=== PATIENT | female | born 1950 | race Caucasian/White ===

== ENCOUNTER 2020-06-14 04:21 | Outpatient (RCR) | payer OTHER, SELFPAY ==
[2020-06-14] MEDS: Normal Saline Flush 10 ML SYR IVP (10:35)
== END 2020-06-24 23:59 | disposition home or self-care (01) ==
LOC: INF 04:21
PROVIDERS: Visit Provider Family Medicine
DX: M81.0 Age-related osteoporosis without current pathological fracture (principal)
CPT/HCPCS: 96365; J3489

== ENCOUNTER 2020-07-16 01:47 | Outpatient (CLI) | payer OTHER, SELFPAY ==
--- NOTE | 2020-07-16 07:30 | DI.MAMMO_ITS ---
EXAM: MG MAMMO SCREENING 60 MIN DUR CLINICAL HISTORY: breast cancer screening,z12.39. TECHNIQUE: Bilateral full field digital CC and MLO mammographic images were obtained with 3D tomosyn thesis and utilizing computer aided detection (CAD). COMPARISON: Prior outside mammograms dating back to 2018. Most recent mammogram in PACS is 2019. T his patient underwent right breast lumpectomy for malignancy in 2016. She has no present breast comp laints FINDINGS: The fibroglandular tissue is quite dense, this decreasing the sensitivity of the mammogram for findin g hidden underlying lesions. There are no obvious spiculated masses nor malignant appearing microcalcification groups. There is n o new significant architectural distortion nor skin thickening-retraction. IMPRESSION: Dense bilateral fibroglandular tissue. No obvious radiographic evidence of malignancy. Given the density of this patient's fibroglandular tissue and previous breast cancer history, I recom mend bilateral screening breast ultrasound. BI-RADS Category 0 - Assessment Incomplete: Need additional imaging evaluation Breast Density - Category D - Extremely dense Breast density Category C or D implies that the patient has dense breast tissue. Dense breast tissue can make it harder to find cancer on a mammogram. Dense breast tissue is also associated with an incr eased risk of breast cancer. This information about the result of the mammogram report was provided to the patient to raise their awareness. Use this report when you speak with the patient about their risks for breast cancer, which includes their family history. At that time, you may recommend additional screening tests (Ultrasoun d or MRI) as these tests may add significant information. A negative radiographic report should not delay biopsy if a dominant or clinically suspicious mass is present. Up to ten percent of cancers are not identified on mammography. A negative report may reinforce clinical impression. Adenosis and dense breasts may obscure an underlying neoplasm. False positive reports average 6 to 10%. Patient will receive a letter notifying them of these results.
== END 2020-07-16 01:48 ==
LOC: DI 01:47
DX: Z12.31 Encounter for screening mammogram for malignant neoplasm of breast (principal); R92.8 Other abnormal and inconclusive findings on diagnostic imaging of breast
CPT/HCPCS: 77063; 77067

== ENCOUNTER 2020-07-19 02:59 | Outpatient (CLI) | payer OTHER, SELFPAY ==
[2020-07-19 12:45] LABS: ALT 27 U/L (14-59); AST 19 U/L (15-37); Albumin 4.1 g/dL (3.4-5.0); Alkaline Phosphatase 88 U/L (46-116); Anion Gap 11.5 mmol/L (3-11); BUN 20 mg/dL (7-18); Bilirubin, Total 0.5 mg/dL (0.2-1.0); CO2 27.5 mmol/L (21.0-32.0); CREATININE 0.7 mg/dL (0.55-1.02); Calcium 9.6 mg/dL (8.5-10.1); Calculated LDL 130 mg/dL (<100); Chloride 102 mmol/L (98-107); Cholesterol 237 mg/dL (<200); Glucose 86 mg/dL (74-106); HDL Cholesterol 93 mg/dL (40-60); Potassium 4.3 mmol/L (3.5-5.1); Sodium 141 mmol/L (136-145); Total Protein 7.4 g/dL (6.4-8.2); Triglyceride 70 mg/dL (<150)
== END 2020-07-19 03:00 | disposition home or self-care (01) ==
LOC: LOS 02:59
DX: K21.9 Gastro-esophageal reflux disease without esophagitis (principal); M81.0 Age-related osteoporosis without current pathological fracture; Z85.3 Personal history of malignant neoplasm of breast; Z79.899 Other long term (current) drug therapy
CPT/HCPCS: 36415; 80053; 80061

== ENCOUNTER 2020-07-23 01:56 | Outpatient (CLI) | payer OTHER, SELFPAY ==
--- NOTE | 2020-07-23 | DI.US_ITS ---
EXAM: US BREAST LT COMPLETE CLINICAL HISTORY: F/U MAMMO, INCONCLUSIVE,DENSE FIBROGLANDULAR TISSUE, H/O BREAST CA TECHNIQUE: Ultrasound right breast performed using standard protocol. COMPARISON: MG MG MAMMO SCREENING 60 MIN DUR from 07/16/2020 FINDINGS: All 4 quadrants of the left breast were evaluated sonographically in the anti radial radial orientati on. No cystic or solid masses are seen sonographically. The axilla was evaluated and is unremarkabl e. IMPRESSION: 1. Unremarkable left breast ultrasound. 2. No evidence for malignancy at this time. Yearly mammography is recommended. BI-RADS Category 1 - Negative DATA REPOSITORY:
--- NOTE | 2020-07-23 | DI.US_ITS ---
EXAM: US BREAST RT COMPLETE CLINICAL HISTORY: F/U INCONCLUSIVE MAMMO,DENSE FIBROGLANDULAR TISSUE,PREVIOUS H/O CA TECHNIQUE: Ultrasound right breast performed using standard protocol. COMPARISON: MG MG MAMMO SCREENING 60 MIN DUR from 07/16/2020 FINDINGS: All 4 quadrants of the right breast were evaluated sonographically in the anti radial and radial orie ntation. No cystic or solid masses are seen sonographically. The axilla was evaluated a is unremark able. IMPRESSION: 1. Unremarkable right breast ultrasound. 2. No evidence for malignancy at this time. Yearly mammography is recommended. BI-RADS Category 1 - Negative DATA REPOSITORY:
== END 2020-07-23 02:16 ==
DX: R92.8 Other abnormal and inconclusive findings on diagnostic imaging of breast (principal); R92.2 Inconclusive mammogram; Z85.3 Personal history of malignant neoplasm of breast
CPT/HCPCS: 76642

== ENCOUNTER 2021-06-20 03:16 | Outpatient (RCR) | payer MEDICARE, SELFPAY ==
[2021-06-20] MEDS: Normal Saline Flush 10 ML SYR IVP (10:21)
== END 2021-06-24 23:59 | disposition home or self-care (01) ==
LOC: INF 03:16
PROVIDERS: Visit Provider Family Medicine
DX: M81.0 Age-related osteoporosis without current pathological fracture (principal)
CPT/HCPCS: 96365; J3489

== ENCOUNTER 2021-07-18 00:52 | Outpatient (CLI) | payer MEDICARE, SELFPAY ==
--- NOTE | 2021-07-18 07:30 | DI.MAMMO_ITS ---
Exam(s) MG MAMMO SCREENING 60 MIN DUR EXAM: MG MAMMO SCREENING 60 MIN DUR CLINICAL HISTORY: breast cancer screening,personal h/o breast ca,z85.3. TECHNIQUE: Bilateral full field digital CC and MLO mammographic images were obtained with 3D tomosyn thesis and utilizing computer aided detection (CAD). COMPARISON: Prior mammograms were reviewed, the most recent being June 2020. Patient right [address] lumpectomy for malignancy in 2016.. Breast ultrasound examination July 2020 was reviewed FINDINGS: The fibroglandular tissue pattern is again noted be quite dense, this decreasing sensitivity of the m ammogram for finding hidden underlying lesions There are no CAD designations There are no new obvious spiculated masses nor malignant appearing microcalcification groups. There is no significant architectural distortion nor skin thickening-retraction. IMPRESSION: Dense bilateral fibroglandular tissue. No obvious radiographic evidence of malignancy nor significan t change compared to prior studies listed above. BI-RADS Category 1 - Negative Breast Density - Category C - Heterogeneously dense Breast density Category C or D implies that the patient has dense breast tissue. Dense breast tissue can make it harder to find cancer on a mammogram. Dense breast tissue is also associated with an incr eased risk of breast cancer. This information about the result of the mammogram report was provided to the patient to raise their awareness. Use this report when you speak with the patient about their risks for breast cancer, which includes their family history. At that time, you may recommend additional screening tests (Ultrasoun d or MRI) as these tests may add significant information. A negative radiographic report should not delay biopsy if a dominant or clinically suspicious mass is present. Up to ten percent of cancers are not identified on mammography. A negative report may reinforce clinical impression. Adenosis and dense breasts may obscure an underlying neoplasm. False positive reports average 6 to 10%. Patient will receive a letter notifying them of these results.
== END 2021-07-18 01:12 ==
DX: Z85.3 Personal history of malignant neoplasm of breast (principal); Z12.31 Encounter for screening mammogram for malignant neoplasm of breast; R92.8 Other abnormal and inconclusive findings on diagnostic imaging of breast
CPT/HCPCS: 77063; 77067

== ENCOUNTER 2021-10-18 01:34 | Outpatient (CLI) | payer MEDICARE, SELFPAY ==
[2021-10-18 12:41] LABS: ALT 26 U/L (14-59); AST 20 U/L (15-37); Alkaline Phosphatase 101 U/L (46-116); Anion Gap 7.7 mmol/L (3-11); BUN 16 mg/dL (7-18); Bilirubin, Total 0.4 mg/dL (0.2-1.0); CO2 27.3 mmol/L (21.0-32.0); CREATININE 0.8 mg/dL (0.55-1.02); Calculated LDL 128 mg/dL (<100); Chloride 108 mmol/L (98-107); Cholesterol 232 mg/dL (<200); Glucose 91 mg/dL (74-106); HDL Cholesterol 94 mg/dL (40-60); Potassium 4.4 mmol/L (3.5-5.1); Sodium 143 mmol/L (136-145); Total Protein 6.9 g/dL (6.4-8.2); Triglyceride 54 mg/dL (<150)
== END 2021-10-18 01:35 | disposition home or self-care (01) ==
LOC: LOS 01:34
DX: E78.5 Hyperlipidemia, unspecified (principal)
CPT/HCPCS: 36415; 80053; 80061

== ENCOUNTER → 2021-12-13 00:43 | Outpatient (CLI) | payer MEDICARE, SELFPAY ==
--- NOTE | 2021-12-13 07:45 | DI.DEXA_ITS ---
Exam(s) XR DEXA BONE DENSITY W/WO SHERRY EXAM: XR DEXA BONE DENSITY W/WO SHERRY CLINICAL HISTORY: osteoporosis,m81.0 TECHNIQUE: [employer] C densitometer analysis of left hip, lumbar spine and right forearm. COMPARISON: No exams were available for comparison FINDINGS: Lateral view of the thoracic and lumbar spine shows no evidence of compression fractures. Bone mineral density measurements of the lumbar spine correspond to a total T-score of -1.4, in the o steopenic range. Bone mineral density measurements of the left hip correspond to a total T-score of -3.1. The femora l neck T-score is -3.0, in the osteoporotic range. . The right forearm bone mineral density measurements correspond to a T-score of the distal 3rd of -2.2 , in the osteopenic range. Total T-score is -3.0, in the osteoporotic range. . IMPRESSION: Osteopenia of the lumbar spine and right forearm. Osteoporosis of the left hip
== END ==
DX: M81.0 Age-related osteoporosis without current pathological fracture (principal); Z13.820 Encounter for screening for osteoporosis; M85.89 Other specified disorders of bone density and structure, multiple sites
CPT/HCPCS: 77080

== ENCOUNTER 2022-08-11 02:01 | Outpatient (CLI) | payer MEDICARE, BC, SELFPAY ==
--- NOTE | 2022-08-11 | DI.US_ITS ---
Exam(s) US BREAST LT COMPLETE MG MAMMO SCREENING 60 MIN DUR EXAM: MG MAMMO SCREENING 60 MIN DUR CLINICAL HISTORY: breast cancer screening,personal h/o breast ca,z85.3,z12.39. TECHNIQUE: Bilateral full field digital CC and MLO mammographic images were obtained with 3D tomosyn thesis and utilizing computer aided detection (CAD). Also performed additional spot compression views of left breast because a finding possible nodular de nsity in left breast on today's screening mammogram. Also performed complete left breast ultrasound including all 4 quadrants, the retroareolar region and the left axilla. COMPARISON: Prior mammograms were reviewed. This patient had prior right breast lumpectomy. FINDINGS: Fibroglandular tissue of the breast is again noted be dense, this somewhat decreasing the sensitivity of the mammogram for finding hidden underlying lesions. No new significant radiograph findings in the right breast. In the left breast on the 3D MLO images there is a suggestion of a nodule measuring approximately 9 x 8 millimeters, located approximately 3 cm in from the nipple on the MLO view. Additional spot compression view of this area was equivocal for the presence of a nodule. We proceed ed with ultrasound. (See below). In the opposite-right breast there is no significant change. Some architectural distortion from prio r lumpectomy again noted. No new nodules evident in the right breast. Benign appearing microcalcifications are noted but no new malignant-appearing microcalcification grou ps. COMPLETE LEFT BREAST ULTRASOUND: No evidence of solid or significant cystic lesions in all 4 quadrants. No ultrasound findings to cor respond to the finding in the left breast on today's mammogram. This implies that the mammogram find ing may just be related to overlapping tissues in this patient with dense breast tissue. Scanning of the left axilla is negative for adenopathy. IMPRESSION: 1. No radiographic evidence of malignancy. 2. Negative complete left breast ultrasound. Appropriate follow-up is keep this patient yearly mammogram schedule, with earlier imaging if a self detected breast change is noted. Findings and recommendations were discussed by myself with the patient today. BI-RADS Category 2 - Benign Findings Breast Density - Category D - Extremely dense Breast density Category C or D implies that the patient has dense breast tissue. Dense breast tissue can make it harder to find cancer on a mammogram. Dense breast tissue is also associated with an incr eased risk of breast cancer. This information about the result of the mammogram report was provided to the patient to raise their awareness. Use this report when you speak with the patient about their risks for breast cancer, which includes their family history. At that time, you may recommend additional screening tests (Ultrasoun d or MRI) as these tests may add significant information. A negative radiographic report should not delay biopsy if a dominant or clinically suspicious mass is present. Up to ten percent of cancers are not identified on mammography. A negative report may reinforce clinical impression. Adenosis and dense breasts may obscure an underlying neoplasm. False positive reports average 6 to 10%. Patient will receive a letter notifying them of these results.
== END 2022-08-11 02:21 ==
PROVIDERS: PCP Nurse Practitioner Family
DX: Z12.31 Encounter for screening mammogram for malignant neoplasm of breast (principal); Z85.3 Personal history of malignant neoplasm of breast; R92.8 Other abnormal and inconclusive findings on diagnostic imaging of breast; N64.59 Other signs and symptoms in breast
CPT/HCPCS: 76642; 77063; 77067

== ENCOUNTER 2023-02-24 01:11 | Outpatient (RCR) | payer MEDICARE, BC, SELFPAY ==
[2023-02-24] MEDS: Normal Saline Flush 10 ML SYR IVP (11:14)
[2023-02-24] MEDS: ZOLEDRONIC ACID/MANNITOL/WATER 5 MG/100 ML BTL 300 MG IVPB (11:14)
== END 2023-03-24 23:59 | disposition home or self-care (01) ==
LOC: INF 01:11
PROVIDERS: PCP Nurse Practitioner Family; Visit Provider Nurse Practitioner Family
DX: M81.0 Age-related osteoporosis without current pathological fracture (principal)
CPT/HCPCS: 96365; J3489

== ENCOUNTER → 2023-08-21 00:54 | Outpatient (CLI) | payer MEDICARE, BC, SELFPAY ==
--- NOTE | 2023-08-21 11:32 | DI.MAMMO_ITS ---
Exam(s) MG MAMMO SCREENING 60 MIN DUR EXAM: MG MAMMO SCREENING 60 MIN DUR CLINICAL HISTORY: breast cancer screening,personal h/o breast ca,z85.3,z12.39. TECHNIQUE: Bilateral full field digital CC and MLO mammographic images were obtained with 3D tomosyn thesis and utilizing computer aided detection (CAD). COMPARISON: 2017 through 2022 FINDINGS: Masses: None seen. Architectural Distortion: None seen. Microcalcifications: No suspicious pleomorphic-type are seen. Skin Thickening/Nipple Retraction: None. IMPRESSION: 1. No significant interval change with no specific features of malignancy noted. 2. Unless there is more urgent need, annual screening mammography is recommended, as per [place] [employer] guidelines. BI-RADS Category 1-negative Breast Density - Category D - extremely dense Breast Density Category D: The mammogram demonstrates the patient's breast tissue is dense. Dense abhilash ast tissue is very common and is not abnormal but dense breast tissue can make it harder to find canc er on a mammogram. Also, dense breast tissue may increase their breast cancer risk. This information about the result of the mammogram report was provided to the patient to raise their awareness. Use th is report when you speak with the patient about their risks for breast cancer, which includes their f amily history. At that time, you may recommend for more screening tests (Ultrasound or MRI) as they m ight be useful based on their risk. A negative radiographic report should not delay biopsy if a dominant or clinically suspicious mass is present. Up to ten percent of cancers are not identified on mammography. A negative report may reinforce clinical impression. Adenosis and dense breasts may obscure an underlying neoplasm. False positive reports average 6 to 10%.
== END ==
PROVIDERS: PCP Nurse Practitioner Family; Visit Provider Nurse Practitioner Family
DX: Z85.3 Personal history of malignant neoplasm of breast (principal); Z12.31 Encounter for screening mammogram for malignant neoplasm of breast
CPT/HCPCS: 77063; 77067

== ENCOUNTER 2024-10-05 01:53 | Outpatient (CLI) | payer MEDICARE, BC, SELFPAY ==
--- NOTE | 2024-10-05 07:15 | DI.MAMMO_ITS ---
Exam(s) MG MAMMO SCREENING 60 MIN DUR EXAM: MG MAMMO SCREENING 60 MIN DUR CLINICAL HISTORY: breast cancer screening,personal h/o breast ca,z12.31 TECHNIQUE: Bilateral full field digital CC and MLO mammographic images were obtained with 3D tomosyn thesis and utilizing computer aided detection (CAD). COMPARISON: Available for comparison. FINDINGS: Masses/Architectural Distortion: No suspicious masses or areas of architectural distortion are presen t. The patient is status post right lumpectomy. Microcalcifications: No suspicious pleomorphic-type are seen. Skin Thickening/Nipple Retraction: None. IMPRESSION: 1. No significant interval change with no specific features of malignancy noted. 2. Unless there is more urgent need, screening mammography is recommended, as per [employer] guidelines. 3. Findings were discussed with the patient on the date of the examination. BI-RADS Category 2 - Benign Findings Breast Density - Category D - The breast are extremely dense, which lowers the sensitivity of the teja mography. Breast density Category C or D implies that the patient has dense breast tissue. Dense breast tissue can make it harder to find cancer on a mammogram. Dense breast tissue is also associated with an incr eased risk of breast cancer. This information about the result of the mammogram report was provided to the patient to raise their awareness. Use this report when you speak with the patient about their risks for breast cancer, which includes their family history. At that time, you may recommend additional screening tests (Ultrasoun d or MRI) as these tests may add significant information. A negative radiographic report should not delay biopsy if a dominant or clinically suspicious mass is present. Up to ten percent of cancers are not identified on mammography. A negative report may reinforce clinical impression. Adenosis and dense breasts may obscure an underlying neoplasm. False positive reports average 6 to 10%. Patient will receive a letter notifying them of these results.
== END 2024-10-05 02:13 ==
LOC: DI 01:53
PROVIDERS: PCP Nurse Practitioner Family; Visit Provider Nurse Practitioner Family
DX: Z12.31 Encounter for screening mammogram for malignant neoplasm of breast (principal); R92.343 Mammographic extreme density, bilateral breasts
CPT/HCPCS: 77063; 77067